=== PATIENT | male | born 1990 | race Two or more races ===

== ENCOUNTER 2018-11-30 15:16 | Emergency (ER) | payer SELFPAY ==
[2018-11-30] MEDS ORDERED: NORMAL SALINE 1000 ML 1,000 ML IV ONE (16:15)
[2018-11-30] MEDS ORDERED: FENTANYL CITRATE INJ/PF 100 MCG/2 ML AMPUL IV ONE (16:18)
[2018-11-30] MEDS ORDERED: PHENYLEPHRINE HCL INJ/PF 10 MG/1 ML SDV IV ONE (16:23)
[2018-11-30] MEDS ORDERED: TERBUTALINE SULFATE 2.5 MG TABLET PO ONE (16:25)
[2018-11-30 16:56] LABS: ABSOLUTE BASOPHILS # (AUTO) 0.1 10^3/uL (0.0-0.2); ABSOLUTE EOSINOPHILS # (AUTO) 0.1 10^3/uL (0.0-0.6); ABSOLUTE LYMPHOCYTES (AUTO) 2.1 10^3/uL (0.5-4.7); ABSOLUTE MONOCYTES (AUTO) 0.6 10^3/uL (0.1-1.4); ABSOLUTE NEUT (AUTO) 6.5 10^3/uL (1.7-8.2); BASOPHILS % (AUTO) 0.9 % (0-2); EOSINOPHILS % (AUTO) 1.1 % (0-6); HEMATOCRIT 46.2 % (37.9-51.0); MEAN CORPUSCULAR HEMOGLOBIN 30.7 pg (27.0-33.4); MEAN CORPUSCULAR HGB CONC 34.5 g/dL (32.0-36.0); MEAN CORPUSCULAR VOLUME 89 fl (80-97); MONOCYTES % (AUTO) 6.9 % (3-13); PLATELET COUNT 235 10^3/uL (150-450); RED BLOOD COUNT 5.19 10^6/uL (4.35-5.55); RED CELL DISTRIBUTION WIDTH 12.9 % (11.5-14.0); SEGMENTED NEUTROPHILS % (AUTO) 69.1 % (42-78); TOTAL CELLS COUNTED % (AUTO) 100 %; WHITE BLOOD COUNT 9.4 10^3/uL (4.0-10.5)
[2018-11-30 17:12] LABS: ALANINE AMINOTRANSFERASE 39 U/L (21-72); ALBUMIN 4.8 g/dL (3.5-5.0); ALKALINE PHOSPHATASE 73 U/L (38-126); ANION GAP 9 (5-19); ASPARTATE AMINO TRANSFERASE 31 U/L (17-59); BILIRUBIN,DIRECT 0.3 mg/dL (0.0-0.4); BILIRUBIN,TOTAL 0.7 mg/dL (0.2-1.3); BLOOD UREA NITROGEN 9 mg/dL (7-20); CALCIUM 10.2 mg/dL (8.4-10.2); CARBON DIOXIDE 28 mmol/L (22-30); CHLORIDE 100 mmol/L (98-107); GLUCOSE 94 mg/dL (75-110); POTASSIUM 4.4 mmol/L (3.6-5.0); SODIUM 137.1 mmol/L (137-145); TOTAL PROTEIN 7.9 g/dL (6.3-8.2)
[2018-11-30] MEDS ORDERED: LIDOCAINE 1% INJ-PF (10 MG/ML) 30 ML SDV INFIL ONE (18:00)
[2018-11-30] MEDS ORDERED: MORPHINE SULFATE 10 MG/ML INJ IV ONE ×2 (19:32→20:48)
--- NOTE | 2018-11-30 19:42 | ER Document Report ---
ED GI/ - General Chief Complaint: Penile Problem Stated Complaint: PENILE PAIN Time Seen by Provider: 11/30/18 16:00 Mode of Arrival: Ambulatory Information source: Patient Notes: Patient states he has had priapism since 4 PM yesterday. Patient denies taking any medications or supplements. Patient states that he did recently have dental work and had been on ibuprofen and thinks that the ibuprofen may be causing his symptoms. Patient does report a previous episode of priapism about 3 weeks ago but states that he took a sleeping pill and went to bed and then woke up in the symptoms had resolved. Patient denies any trauma to the penis. Patient denies any fever, nausea or vomiting. TRAVEL OUTSIDE OF THE [place] IN LAST 30 DAYS: No - HPI Patient complains to provider of: Other - Priapism Onset: Yesterday Timing/Duration: Persistent Quality of pain: Achy, Pressure Pain Level: 4 Sexual history: Active Associated symptoms: denies: Urinary hesitancy, Urinary frequency, Urinary retention, Urinary urgency, Vomiting Exacerbated by: Denies Relieved by: Denies Similar symptoms previously: Yes Recently seen / treated by doctor: No - Related Data Allergies/Adverse Reactions: No Known Allergies Allergy (Unverified 11/30/18 15:30) Past Medical History - General Information source: Patient - Social History Smoking Status: Current Every Day Smoker Frequency of alcohol use: None Drug Abuse: None Lives with: Family Family History: Reviewed & Not Pertinent Patient has suicidal ideation: No Patient has homicidal ideation: No - Medical History Medical History: Negative Renal/ Medical History: Denies: Hx Peritoneal Dialysis Surgical Hx: Negative Review of Systems - Review of Systems Constitutional: No symptoms reported. denies: Fever, Recent illness EENT: No symptoms reported Cardiovascular: No symptoms reported Respiratory: No symptoms reported. denies: Cough Gastrointestinal: No symptoms reported. denies: Abdominal pain, Vomiting Genitourinary: Other - Priapism Male Genitourinary: No symptoms reported Musculoskeletal: No symptoms reported Skin: No symptoms reported Hematologic/Lymphatic: No symptoms reported Neurological/Psychological: No symptoms reported Physical Exam - Vital signs Vitals: Temp Pulse Resp BP Pulse Ox 98.7 F 87 14 136/72 H 100 11/30/18 15:24 11/30/18 15:24 11/30/18 15:24 11/30/18 15:24 11/30/18 15:24 - General General appearance: Appears well, Alert In distress: Mild - HEENT Head: Normocephalic, Atraumatic Eyes: Normal Conjunctiva: Normal Nasal: Normal Mouth/Lips: Normal Mucous membranes: Normal Neck: Normal, Supple. No: Lymphadenopathy - Respiratory Respiratory status: No respiratory distress Chest status: Nontender Breath sounds: Normal. No: Rales, Rhonchi, Stridor, Wheezing Chest palpation: Normal - Cardiovascular Rhythm: Regular Heart sounds: S1 appreciated, S2 appreciated Murmur: No - Abdominal Inspection: Normal Distension: No distension Bowel sounds: Normal Tenderness: Nontender - Genitourinary Inspection: Other - With a firm erect penis that is tender to touch Scrotum: Normal - Back Back: Normal, Nontender. No: CVA tenderness - Extremities General upper extremity: Normal inspection, Normal ROM General lower extremity: Normal inspection, Normal ROM - Neurological Neuro grossly intact: Yes Cognition: Normal Jacki Coma Scale Eye Opening: Spontaneous Beeson Coma Scale Verbal: Oriented Beeson Coma Scale Motor: Obeys Commands Beeson Coma Scale Total: 15 - Psychological Associated symptoms: Normal affect, Normal mood - Skin Skin Temperature: Warm Skin Moisture: Dry Skin Color: Normal Course - Re-evaluation Re-evalutation: 11/30/18 16:45 Patient now admits to taking some type of supplement that he bought at a gas station. Patient states he took this medication which can cause or promote erection, about 4 hours after the erection had started. Consult with Dr. Eduardo who recommends plan to inject the penis with phenylephrine and give oral terbutaline to help manage symptoms. 11/30/18 17:05 Patient injected with phenylephrine 200mcg on each side of the penis. 11/30/18 17:[address] Eduardo regarding patient status. Recommends repeating the injections. 11/30/18 17:35 Penis injected again with 200 mcg phenylephrine to each side of penis 11/30/18 18:00 Dr. Eduardo to bedside for examination. Recommends performing pudendal block and withdrawing blood from the cavernosum bilaterally. 11/30/18 18:10 Dr. Gray taking over for Dr. Eduardo into bedside for examination. 11/30/18 18:20 Pudendal block performed per Dr. Gray 11/30/18 18:50 Dr[address] Gray and Dr. Perry to bedside to aspirate blood from the penis. 18-gauge needles inserted at the 3 and 9 o'clock position. 11/30/18 19:15 Patient with about 200 mL's of blood that drained from each side of the penis. Penis did start to become somewhat tumescent. An additional 100 mcg of phenylephrine was injected to each side prior to needles being withdrawn. 11/30/18 19:30 Penis became firm and erect. Call placed to [facility] transfer center per Dr. Gray. 11/30/18 20:15 Patient accepted to [facility] to services of Dr Storey. Report and handoff given to Prabha GUERRERO. 11/30/18 20:49 Phenylephrine 200 mcg injected to each side of penis, Dr. Gray then to bedside for examination. 11/30/18 21:23 Transport crew here for patient. Patient stable for transfer at this time. - Vital Signs Vital signs: Temp Pulse Resp BP Pulse Ox 98.7 F 87 16 137/77 H 98 11/30/18 15:24 11/30/18 15:24 11/30/18 21:01 11/30/18 21:01 11/30/18 21:01 - Laboratory Result Diagrams: 11/30/18 16:35 11/30/18 16:35 Laboratory results interpreted by me: 11/30/18 11/30/18 19:15 19:15 Carbonic Acid 3.02 H ABG pH 6.84 L* ABG pCO2 100.2 H* ABG pO2 12.7 L* ABG HCO3 16.8 L ABG Total CO2 19.9 L Lactic Acid 11.4 H Labs- Entire Visit 11/30/18 11/30/18 11/30/18 16:30 16:35 16:35 WBC 9.4 RBC 5.19 Hgb 16.0 Hct 46.2 MCV 89 MCH 30.7 MCHC 34.5 RDW 12.9 Plt Count 235 Seg Neutrophils % 69.1 Lymphocytes % 22.0 Monocytes % 6.9 Eosinophils % 1.1 Basophils % 0.9 Absolute Neutrophils 6.5 Absolute Lymphocytes 2.1 Absolute Monocytes 0.6 Absolute Eosinophils 0.1 Absolute Basophils 0.1 Carbonic Acid HCO3/H2CO3 Ratio ABG pH ABG pCO2 ABG pO2 ABG HCO3 ABG Total CO2 ABG O2 Saturation ABG Base Excess FiO2 Sodium 137.1 Potassium 4.4 Chloride 100 Carbon Dioxide 28 Anion Gap 9 BUN 9 Creatinine 1.03 Est GFR ( Amer) > 60 Est GFR (Non-Af Amer) > 60 Glucose 94 POC Glucose 86 Lactic Acid Calcium 10.2 Total Bilirubin 0.7 Direct Bilirubin 0.3 Neonat Total Bilirubin Not Reportable Neonat Direct Bilirubin Not Reportable Neonat Indirect Bili Not Reportable AST 31 ALT 39 Alkaline Phosphatase 73 Total Protein 7.9 Albumin 4.8 11/30/18 11/30/18 19:15 19:15 WBC RBC Hgb Hct MCV MCH MCHC RDW Plt Count Seg Neutrophils % Lymphocytes % Monocytes % Eosinophils % Basophils % Absolute Neutrophils Absolute Lymphocytes Absolute Monocytes Absolute Eosinophils Absolute Basophils Carbonic Acid 3.02 H HCO3/H2CO3 Ratio 5:1 ABG pH 6.84 L* ABG pCO2 100.2 H* ABG pO2 12.7 L* ABG HCO3 16.8 L ABG Total CO2 19.9 L ABG O2 Saturation ABG Base Excess -19.8 FiO2 ROOM AIR Sodium Potassium Chloride Carbon Dioxide Anion Gap BUN Creatinine Est GFR ( Amer) Est GFR (Non-Af Amer) Glucose POC Glucose Lactic Acid 11.4 H Calcium Total Bilirubin Direct Bilirubin Neonat Total Bilirubin Neonat Direct Bilirubin Neonat Indirect Bili AST ALT Alkaline Phosphatase Total Protein Albumin Critical Care Note - Critical Care Note Total time excluding time spent on procedures (mins): 45 Comments: Please bill 45 minutes critical care time spent in direct contact evaluating, reevaluating patient, treating symptoms, reviewing labs, studies and speaking with family and consultants, excluding any procedures. Discharge - Discharge Clinical Impression: Priapism Condition: Fair Disposition: [facility]
[2018-11-30 20:04] LABS: ARTERIAL BLOOD BASE EXCESS -19.8 mmol/L; ARTERIAL BLOOD H2CO3 3.02 mmol/L (1.05-1.35); ARTERIAL BLOOD HCO3 16.8 mmol/L (20-24); ARTERIAL BLOOD TOTAL CO2 19.9 mmol/L (23-27)
[2018-11-30 20:09] LABS: ARTERIAL BLOOD FIO2 ROOM AIR; ARTERIAL BLOOD PCO2 100.2 mmHg (35-45); ARTERIAL BLOOD PH 6.84 (7.35-7.45); ARTERIAL BLOOD PO2 12.7 mmHg (80-100)
[2018-11-30] MEDS ORDERED: PHENYLEPHRINE HCL INJ/PF 10 MG/1 ML SDV INJ ONE (20:25)
[2018-11-30] MEDS ORDERED: BUPIVACAINE HCL 0.75% INJ/PF (7.5 MG/1 ML) 10 ML SDV INJ ONE (21:02)
[2018-11-30] MEDS ORDERED: LIDOCAINE 1% INJ (10 MG/ML) 10 ML MDV INJ ONE (21:02)
[2018-11-30] MEDS ORDERED: LIDOCAINE 1% INJ-PF (10 MG/ML) 30 ML SDV ONE (21:06)
[2018-11-30 21:31] VITALS: BP 137/77
== END 2018-11-30 21:30 | disposition short-term general hospital (02) ==
LOC: ER 15:16
DX: N48.30 Priapism, unspecified (principal); Z98.890 Other specified postprocedural states; F17.200 Nicotine dependence, unspecified, uncomplicated
CPT/HCPCS: 96376; 99291; 96361; 96374; 36415; 82962; 82803; 83605; 85025; 80053; 54220; J3010; J2270; J3490; J7030

== ENCOUNTER 2018-12-03 19:56 | Emergency (ER) | payer SELFPAY ==
[2018-12-03] MEDS ORDERED: HYDROMORPHONE HCL INJ/PF 2 MG/ML AMPULE IV ONE (21:45)
--- NOTE | 2018-12-03 21:45 | ER Document Report ---
ED General - General Chief Complaint: Post Surgical Pain Stated Complaint: POST OP PAIN Time Seen by Provider: 12/03/18 21:32 Notes: This is a pleasant 28-year-old male who returns to emergency department for priapism. Patient was seen here a few days ago and had procedure to relieve the 24-hour erection for which she had. Was unsuccessful. Patient was transferred to [place]. Had surgery there. Was discharged 2 days ago. Returns today for penile pain and erection. The erection has been present for approximately 12 hours TRAVEL OUTSIDE OF THE [place] IN LAST 30 DAYS: No - HPI Onset: This afternoon Onset/Duration: Gradual Quality of pain: Throbbing Severity: Severe Pain Level: 4 Associated symptoms: None - Related Data Allergies/Adverse Reactions: No Known Allergies Allergy (Verified 12/03/18 19:57) Past Medical History - General Information source: Patient - Social History Smoking Status: Current Every Day Smoker Frequency of alcohol use: Occasional Drug Abuse: None Lives with: Spouse/Significant other Family History: Reviewed & Not Pertinent Renal/ Medical History: Denies: Hx Peritoneal Dialysis Past Surgical History: Reports: Other - Penile surgery Review of Systems - Review of Systems Notes: Constitutional: denies: Chills, Diaphoresis, Fever, Malaise, Weakness EENT: denies: Eye discharge, Blurred vision, Tearing, Double vision, Nose congestion, Nose discharge, Throat swelling, Mouth pain Cardiovascular: denies: Palpitations, Heart racing, Orthopnea, Dyspnea, Chest pain Respiratory: denies: Cough, Hurts to breathe, Wheezing, Shortness of breath Gastrointestinal: denies: Abdominal pain, Diarrhea, Nausea, Vomiting, Black stools, bright red blood in stool Genitourinary: denies: Burning, Dysuria, Discharge, Frequency, Flank pain, Hematuria. Complaining of severe pain in the penis with persistent erection Musculoskeletal: denies: Joint pain, Joint swelling, Muscle pain, Muscle stiffness, back pain Hematologic/Lymphatic: denies: Anemia, Easy bleeding, Easy bruising, Blood clots Neurological/Psychological: denies: Confusion, Dementia, Depression, Loss of consciousness Skin: No lesions, no masses, no skin breakdown, no abscesses Physical Exam - Vital signs Vitals: Temp Pulse Resp BP Pulse Ox 98.2 F 99 20 136/77 H 100 12/03/18 20:07 12/03/18 20:07 12/03/18 20:07 12/03/18 20:07 12/03/18 20:07 Interpretation: Normal - General General appearance: Appears well, Alert In distress: Moderate - HEENT Head: Normocephalic, Atraumatic Eyes: Normal Pupils: PERRL - Respiratory Respiratory status: No respiratory distress Chest status: Nontender Breath sounds: Normal Chest palpation: Normal - Cardiovascular Rhythm: Regular Heart sounds: Normal auscultation Murmur: No - Abdominal Inspection: Normal Distension: No distension Bowel sounds: Normal Tenderness: Nontender Organomegaly: No organomegaly - Genitourinary Notes: This patient has a swollen and a react penis. Stitches are in place from recent surgery. Testicles are normal in appearance. - Back Back: Normal, Nontender - Extremities General upper extremity: Normal inspection, Nontender, Normal color, Normal ROM, Normal temperature General lower extremity: Normal inspection, Nontender, Normal color, Normal ROM, Normal temperature. No: Yudelka's sign - Neurological Neuro grossly intact: Yes Cognition: Normal Orientation: AAOx4 Jacki Coma Scale Eye Opening: Spontaneous Pemberton Coma Scale Verbal: Oriented [place]ton Coma Scale Motor: Obeys Commands Pemberton Coma Scale Total: 15 Speech: Normal Motor strength normal: LUE, RUE, LLE, RLE Sensory: Normal - Psychological Associated symptoms: Normal affect, Normal mood - Skin Skin Temperature: Warm Skin Moisture: Dry Skin Color: Normal Course - Re-evaluation Re-evalutation: 12/03/18 23:33 I did consult with the urologist medication tech in [place]. If you have the little things which I am doing at this time. I am also doing the CT scan of the abdomen and pelvis because patient states that he has been having some weird sensations in the abdomen and pelvis prior to all this priapism complaint. Currently I have performed the procedure. Please see procedure note. Starting on some normal saline with bicarb as well as high flow oxygen. 12/04/18 01:15 Procedure: Priapism intervention: The penile shaft was prepped with Betadine bilaterally. 2 cc of 1% lidocaine injected at the base of the penis on both sides. After anesthesia was obtained a 22-gauge butterfly was inserted bilaterally. A mixture of phenylephrine with normal saline was used to inject into the corpus bilaterally and the catheters were allowed to continue to drain. Approximately 100 cc of total blood was drained. The penile shaft detumesced. Band-Aids were applied. 12/04/18 01:17 Patient was reading evaluated after the IV fluids were complete. The penis began to have increased amounts of tumescence. I have called [place] back again. They have accepted the patient. Awaiting transport at this time. 12/04/18 01:51 Laboratory 12/03/18 12/03/18 12/03/18 21:04 21:04 21:04 WBC 13.6 H RBC 4.32 L Hgb 13.3 L Hct 38.6 MCV 89 MCH 30.7 MCHC 34.3 RDW 12.7 Plt Count 234 Seg Neutrophils % 72.3 Lymphocytes % 16.6 Monocytes % 8.9 Eosinophils % 1.6 Basophils % 0.6 Absolute Neutrophils 9.8 H Absolute Lymphocytes 2.3 Absolute Monocytes 1.2 Absolute Eosinophils 0.2 Absolute Basophils 0.1 Retic Count (auto) 1.95 Absolute Retic 0.085 Sickle Cell Screen NEGATIVE VBG pH VBG pCO2 VBG HCO3 VBG Base Excess Sodium 135.4 L Potassium 3.8 Chloride 97 L Carbon Dioxide 31 H Anion Gap 7 BUN 8 Creatinine 1.16 Est GFR ( Amer) > 60 Est GFR (Non-Af Amer) > 60 Glucose 98 Calcium 9.3 Total Bilirubin 0.3 Direct Bilirubin 0.1 Neonat Total Bilirubin Not Reportable Neonat Direct Bilirubin Not Reportable Neonat Indirect Bili Not Reportable AST 29 ALT 34 Alkaline Phosphatase 68 Total Protein 7.0 Albumin 4.1 12/03/18 23:40 WBC RBC Hgb Hct MCV MCH MCHC RDW Plt Count Seg Neutrophils % Lymphocytes % Monocytes % Eosinophils % Basophils % Absolute Neutrophils Absolute Lymphocytes Absolute Monocytes Absolute Eosinophils Absolute Basophils Retic Count (auto) Absolute Retic Sickle Cell Screen VBG pH 7.40 VBG pCO2 47.9 VBG HCO3 29.3 VBG Base Excess 3.8 Sodium Potassium Chloride Carbon Dioxide Anion Gap BUN Creatinine Est GFR ( Amer) Est GFR (Non-Af Amer) Glucose Calcium Total Bilirubin Direct Bilirubin Neonat Total Bilirubin Neonat Direct Bilirubin Neonat Indirect Bili AST ALT Alkaline Phosphatase Total Protein Albumin Abdomen/Pelvis CT 12/04/18 00:00 IMPRESSION: 1. Small pockets of air within the penile corpora cavernosa, which may be physiologic given the patient's history of priapism. 2. No evidence of fluid collection or abscess in the penile region. 12/04/18 03:47 Transport is here at this time. Patient remained stable for transport. - Vital Signs Vital signs: Temp Pulse Resp BP Pulse Ox 98.2 F 99 16 146/75 H 100 12/04/18 03:18 12/03/18 20:07 12/04/18 03:18 12/04/18 03:18 12/04/18 03:18 - Laboratory Result Diagrams: 12/03/18 21:04 12/03/18 21:04 Laboratory results interpreted by me: 12/03/18 12/03/18 21:04 21:04 WBC 13.6 H RBC 4.32 L Hgb 13.3 L Absolute Neutrophils 9.8 H Sodium 135.4 L Chloride 97 L Carbon Dioxide 31 H Discharge - Discharge Clinical Impression: Priapism, unspecified Condition: Fair Disposition: [facility]
[2018-12-03] MEDS ORDERED: PSEUDOEPHEDRINE HCL 30 MG TABLET PO ONE (21:46)
[2018-12-03] MEDS ORDERED: NORMAL SALINE 1000 ML 1,000 ML IV ONE (21:46)
[2018-12-03] MEDS ORDERED: PHENYLEPHRINE HCL INJ/PF 10 MG/1 ML SDV IV ONE (21:47)
[2018-12-03] MEDS ORDERED: LIDOCAINE 1% INJ (10 MG/ML) 10 ML MDV INJ ONE (21:50)
[2018-12-03] MEDS ORDERED: LIDOCAINE 1% INJ-PF (10 MG/ML) 30 ML SDV ONE (22:03)
[2018-12-03 22:47] LABS: ABSOLUTE BASOPHILS # (AUTO) 0.1 10^3/uL (0.0-0.2); ABSOLUTE EOSINOPHILS # (AUTO) 0.2 10^3/uL (0.0-0.6); ABSOLUTE LYMPHOCYTES (AUTO) 2.3 10^3/uL (0.5-4.7); ABSOLUTE MONOCYTES (AUTO) 1.2 10^3/uL (0.1-1.4); ABSOLUTE NEUT (AUTO) 9.8 10^3/uL (1.7-8.2); ABSOLUTE RETICS # 0.085 10^6/uL (0.028-0.122); BASOPHILS % (AUTO) 0.6 % (0-2); EOSINOPHILS % (AUTO) 1.6 % (0-6); HEMATOCRIT 38.6 % (37.9-51.0); HEMOGLOBIN 13.3 g/dL (13.5-17.0); LYMPHOCYTES % (AUTO) 16.6 % (13-45); MEAN CORPUSCULAR HEMOGLOBIN 30.7 pg (27.0-33.4); MEAN CORPUSCULAR HGB CONC 34.3 g/dL (32.0-36.0); MEAN CORPUSCULAR VOLUME 89 fl (80-97); MONOCYTES % (AUTO) 8.9 % (3-13); PLATELET COUNT 234 10^3/uL (150-450); RED BLOOD COUNT 4.32 10^6/uL (4.35-5.55); RED CELL DISTRIBUTION WIDTH 12.7 % (11.5-14.0); RETICULOCYTE COUNT (AUTO) 1.95 % (0.66-2.85); SEGMENTED NEUTROPHILS % (AUTO) 72.3 % (42-78); TOTAL CELLS COUNTED % (AUTO) 100 %; WHITE BLOOD COUNT 13.6 10^3/uL (4.0-10.5)
[2018-12-03] MEDS ORDERED: NORMAL SALINE 500 ML IV ONE (23:21)
[2018-12-03] MEDS ORDERED: SODIUM BICARBONATE 8.4% INJ 50 MEQ/50 ML DISP.SYRIN IV ONE (23:22)
[2018-12-04 00:01] LABS: ALANINE AMINOTRANSFERASE 34 U/L (21-72); ALBUMIN 4.1 g/dL (3.5-5.0); ALKALINE PHOSPHATASE 68 U/L (38-126); ANION GAP 7 (5-19); ASPARTATE AMINO TRANSFERASE 29 U/L (17-59); BILIRUBIN,DIRECT 0.1 mg/dL (0.0-0.4); BILIRUBIN,TOTAL 0.3 mg/dL (0.2-1.3); BLOOD UREA NITROGEN 8 mg/dL (7-20); CALCIUM 9.3 mg/dL (8.4-10.2); CARBON DIOXIDE 31 mmol/L (22-30); CHLORIDE 97 mmol/L (98-107); GLUCOSE 98 mg/dL (75-110); POTASSIUM 3.8 mmol/L (3.6-5.0); SODIUM 135.4 mmol/L (137-145)
[2018-12-04 00:06] LABS: VENOUS BLOOD BASE EXCESS 3.8 mmol/L; VENOUS BLOOD HCO3 29.3 mmol/L (20-32); VENOUS BLOOD PCO2 47.9 mmHg (35-63); VENOUS BLOOD PH 7.4 (7.30-7.42)
[2018-12-04] MEDS ORDERED: FENTANYL CITRATE INJ/PF 100 MCG/2 ML AMPUL IV ONE ×2 (00:30→02:48)
[2018-12-04] MEDS ORDERED: CEFTRIAXONE INJ 1000 MG VIAL IV ONE (01:17)
--- NOTE | 2018-12-04 01:35 | RADIOLOGY REPORT (SQ) ---
CT ABDOMEN PELVIS WITH IV CONTRAST HISTORY: Abdominal pain. Priapism. COMPARISON: None. TECHNIQUE: CT scan of the abdomen and pelvis with IV contrast. This exam was performed according to our departmental dose-optimization program, which includes automated exposure control, adjustment of the mA and/or kV according to patient size and/or use of iterative reconstruction technique. FINDINGS: The lung bases are clear. No pleural or pericardial effusions. There is no hiatal hernia. The liver, spleen, pancreas, gallbladder, adrenal glands, and kidneys are unremarkable. No urinary stones are seen. The prostate gland and seminal vesicles are unremarkable. There are small pockets of air within the penile corpora cavernosa, which may be physiologic. No evidence of fluid collection or abscess in the penile region. No small bowel obstruction. The appendix is normal. There is no evidence of diverticulitis. No intraperitoneal free fluid or free air is identified. The aorta and IVC are normal caliber. No acute osseous findings are appreciated. There is no body wall hernia. IMPRESSION: 1. Small pockets of air within the penile corpora cavernosa, which may be physiologic given the patient's history of priapism. 2. No evidence of fluid collection or abscess in the penile region.
[2018-12-04 03:39] VITALS: BP 146/75
== END 2018-12-04 03:55 | disposition short-term general hospital (02) ==
LOC: ER 19:56
DX: N48.30 Priapism, unspecified (principal); G89.18 Other acute postprocedural pain; F17.200 Nicotine dependence, unspecified, uncomplicated
CPT/HCPCS: 96376; 99284; 96361; 96375; 96365; 96366; 36415; 85025; 85660; 85045; 80053; 82803; 74177; J3010; J1170; J2370; J3490; J0696; J7030; J7040